=== PATIENT | female | born 1955 | race Caucasian/White ===

== ENCOUNTER → 2020-06-14 | Day surgery (SDC) | payer OTHER ==
[2020-06-04 15:21] LABS: Basophils # (auto) 0 10 ^3/uL (0-0.2); Basophils % (auto) 0.4 % (0.0-2.0); Eosinophils # (auto) 0.1 10 ^3/uL (0-0.8); Eosinophils % (auto) 0.9 % (0.0-7.0); Hematocrit 42.2 % (36.0-46.0); Hemoglobin 14.7 g/dL (12.2-16.2); Lymphocytes # (auto) 1.9 10 ^3/uL (0.4-5.4); Mean Corpuscular Hemoglobin 32.2 pg (28.0-32.0); Mean Corpuscular Hgb Conc. 34.8 g/dL (32.0-36.0); Mean Corpuscular Volume 92.4 fL (80.0-100.0); Monocytes % (auto) 10.3 % (0.0-12.0); Neutrophils # (auto) 6.2 10 ^3/uL (1.6-8.6); Neutrophils % (auto) 67.4 % (37.0-80.0); Platelet Count (auto) 231 10^3/uL (140-450); Red Blood Cells 4.57 10^6/uL (4.0-5.20); Red Cell Distribution Width 14.1 % (11.8-14.3); White Blood Cell 9.3 10^3/uL (4.4-10.8)
[2020-06-04 15:28] LABS: Urine Bacteria FEW /hpf (None Seen); Urine Blood Negative /uL (Negative); Urine Specific Gravity 1.014 (1.001-1.035); Urine WBC 7 /hpf (0 - 5)
[2020-06-04 15:41] LABS: INR 0.99 (0.9-1.15); Partial Thromboplastin Time 25.9 sec (23.0-31.2)
[2020-06-04 15:42] LABS: Albumin 3.7 g/dL (3.4-5.0); Calcium 8.4 mg/dL (8.5-10.1); Potassium 4.3 mmol/L (3.5-5.1)
[2020-06-04 15:48] LABS: BUN/Creatinine Ratio 12.1; Bilirubin, Total 0.3 mg/dL (0.2-1.0); Total Protein 7.2 g/dL (6.4-8.2)
[~2020-06-14] VITALS: Ht 170.2 cm; Wt 63.5 kg
[~2020-06-14] MED LIST: CLINDAMYCIN 600MG IV 50 ML IV ONE; ESTR1TAB3 PO; FLUO1TAB12 PO; HYDR1TAB97 PO; HYDROmorphone HCL 2 MG/ML VL IV PRN; IOHEXOL 300 MG/ML 100ML BOTTLE IJ ONE; LIDOCAINE W/ EPINEPHRINE 2% INJ 20ML VIAL ONE; MIDAZOLAM HCL 1MG/1ML-2 ML VIAL ONE; MORPHINE SULF(PF) 0.5MG/ML 10ML VIAL ONE; MORPHINE SULFATE 4 MG/ML SYR/VIAL IV PRN; ONDANSETRON HCL 4 MG/2 ML VIAL IV PRN; ONDANSETRON HCL 4 MG/2 ML VIAL ONE; PROPOFOL 10 MG/ML 20 ML IV ONE; SODIUM CHLORIDE LOCK 10 ML ONE; TRAZ300T16 PO; ZOLP12.52 PO; fentaNYL CITRATE 100 MCG/2 ML VL ONE
[2020-06-14 13:00] VITALS: BP 115/60
== END | disposition home or self-care (01) ==
LOC: SUR 07:13
PROVIDERS: ATTEND Anesthesiology Pain Medicine
DX: S32.030A Wedge compression fracture of third lumbar vertebra, initial encounter for closed fracture (principal); S32.010A Wedge compression fracture of first lumbar vertebra, initial encounter for closed fracture; M80.88XA Other osteoporosis with current pathological fracture, vertebra(e), initial encounter for fracture; G89.29 Other chronic pain; F32.9 Major depressive disorder, single episode, unspecified; Z88.2 Allergy status to sulfonamides; Z88.1 Allergy status to other antibiotic agents; Z88.0 Allergy status to penicillin; Z20.822 Contact with and (suspected) exposure to COVID-19; Z98.890 Other specified postprocedural states; Z79.899 Other long term (current) drug therapy; X58.XXXA Exposure to other specified factors, initial encounter; Y93.89 Activity, other specified; Y92.89 Other specified places as the place of occurrence of the external cause; Y99.8 Other external cause status
CPT/HCPCS: 22514; 22515; 36415; 72100; 80053; 81001; 85025; 85610; 85730; 87086; J1170; J2250; J2270; J2405; J2704; J3010; J3490; Q9967; U0003; 76001

== ENCOUNTER 2020-07-02 18:47 | Emergency (ER) | payer OTHER ==
[~2020-07-02] VITALS: Ht 172.7 cm; Wt 63.0 kg
[~2020-07-02 18:47] MED LIST changes: -CLINDAMYCIN 600MG IV 50 ML IV ONE; -HYDROmorphone HCL 2 MG/ML VL IV PRN; -IOHEXOL 300 MG/ML 100ML BOTTLE IJ ONE; -LIDOCAINE W/ EPINEPHRINE 2% INJ 20ML VIAL ONE; -MIDAZOLAM HCL 1MG/1ML-2 ML VIAL ONE; -MORPHINE SULF(PF) 0.5MG/ML 10ML VIAL ONE; -MORPHINE SULFATE 4 MG/ML SYR/VIAL IV PRN; -ONDANSETRON HCL 4 MG/2 ML VIAL IV PRN; -ONDANSETRON HCL 4 MG/2 ML VIAL ONE; -PROPOFOL 10 MG/ML 20 ML IV ONE; -SODIUM CHLORIDE LOCK 10 ML ONE; -fentaNYL CITRATE 100 MCG/2 ML VL ONE
[2020-07-02] MEDS ORDERED: ONDANSETRON HCL 4 MG/2 ML VIAL IV ONE (19:15)
[2020-07-02] MEDS ORDERED: SODIUM CHLORIDE 0.9% 1,000 ML IV ONE (19:15)
[2020-07-02 20:15] VITALS: BP 118/92
[2020-07-02 20:27] LABS: Basophils # (auto) 0 10 ^3/uL (0-0.2); Eosinophils # (auto) 0 10 ^3/uL (0-0.8); Hematocrit 42.8 % (36.0-46.0); Hemoglobin 14.8 g/dL (12.2-16.2); Lymphocytes # (auto) 0.6 10 ^3/uL (0.4-5.4); Lymphocytes % (auto) 3.4 % (10.0-50.0); Mean Corpuscular Hemoglobin 31.7 pg (28.0-32.0); Mean Corpuscular Hgb Conc. 34.6 g/dL (32.0-36.0); Mean Corpuscular Volume 91.6 fL (80.0-100.0); Monocytes # (auto) 1.2 10 ^3/uL (0-1.3); Monocytes % (auto) 6.6 % (0.0-12.0); Neutrophils # (auto) 16.1 10 ^3/uL (1.6-8.6); Nucleated Red Blood Cells % 0.1 %; Platelet Count (auto) 235 10^3/uL (140-450); Red Blood Cells 4.68 10^6/uL (4.0-5.20); Red Cell Distribution Width 13.8 % (11.8-14.3); White Blood Cell 17.9 10^3/uL (4.4-10.8)
[2020-07-02] MEDS ORDERED: PROCHLORPERAZINE EDISYLATE 5 MG/ML 2ML VIAL IV ONE (20:30)
[2020-07-02 20:45] LABS: Albumin 4.3 g/dL (3.4-5.0); BUN/Creatinine Ratio 13.7; Calcium 9.3 mg/dL (8.5-10.1); Potassium 3.1 mmol/L (3.5-5.1)
[2020-07-02 20:47] LABS: Bilirubin, Total 0.9 mg/dL (0.2-1.0); Total Protein 8.2 g/dL (6.4-8.2)
== END 2020-07-02 21:24 | disposition home or self-care (01) ==
LOC: ER 18:47
DX: F13.239 Sedative, hypnotic or anxiolytic dependence with withdrawal, unspecified (principal); R11.2 Nausea with vomiting, unspecified; Z86.73 Personal history of transient ischemic attack (TIA), and cerebral infarction without residual deficits; Z88.0 Allergy status to penicillin; Z88.1 Allergy status to other antibiotic agents; Z90.710 Acquired absence of both cervix and uterus
CPT/HCPCS: 36415; 80053; 85025; 93005; 96361; 96374; 96375; 99284; J0780; J2405; J7030

== ENCOUNTER → 2022-06-30 | Outpatient (CLI) | payer MEDICARE ==
[~2022-06-30] VITALS: Ht 170.2 cm; Wt 65.8 kg
[~2022-06-30] MED LIST changes: +ADENOSINE 55 MG in GIVE UN-DILUTED 0 ML IV ONE; +ADENOSINE 90 MG/30 ML INJ IV ONE; -ESTR1TAB3 PO; +ESTR1TAB6 PO
== END | disposition home or self-care (01) ==
LOC: Rad HDHVI 13:06
PROVIDERS: ATTEND Internal Medicine Cardiovascular Disease
DX: I50.9 Heart failure, unspecified (principal); R42 Dizziness and giddiness; R55 Syncope and collapse; R07.9 Chest pain, unspecified; R06.02 Shortness of breath; Z82.49 Family history of ischemic heart disease and other diseases of the circulatory system
CPT/HCPCS: 78452; 93005; 96374; 96375; A9500; J0153

== ENCOUNTER → 2022-09-10 | Outpatient (CLI) | payer MEDICARE ==
[~2022-09-10] MED LIST changes: -ADENOSINE 55 MG in GIVE UN-DILUTED 0 ML IV ONE; -ADENOSINE 90 MG/30 ML INJ IV ONE; +AMIO200T33 PO; +DIGO0.12 PO; +FLU01T PO; +FURO1TAB31 PO; +LIDOCAINE 2%HCL (LOCAL ANESTH.) INJ 20ML MDV ONE
[2022-09-10 09:08] VITALS: BP 114/56
[2022-09-10 09:28] VITALS: BP 119/57
== END | disposition home or self-care (01) ==
LOC: Rad HDHVI 08:59
PROVIDERS: ATTEND Internal Medicine Cardiovascular Disease
DX: Z01.818 Encounter for other preprocedural examination (principal); R94.31 Abnormal electrocardiogram [ECG] [EKG]; I50.33 Acute on chronic diastolic (congestive) heart failure; R60.1 Generalized edema; R55 Syncope and collapse; R07.9 Chest pain, unspecified
CPT/HCPCS: 71046; 93005; G0463

== ENCOUNTER 2022-09-11 07:10 | Day surgery (SDC) | payer MEDICARE ==
[2022-09-10 11:00] LABS: Basophils # (auto) 0.1 10 ^3/uL (0-0.2); Basophils % (auto) 0.7 % (0.0-2.0); Eosinophils # (auto) 0.1 10 ^3/uL (0-0.8); Eosinophils % (auto) 1.2 % (0.0-7.0); Hematocrit 45.3 % (36.0-46.0); Hemoglobin 15.1 g/dL (12.2-16.2); Lymphocytes # (auto) 1.5 10 ^3/uL (0.4-5.4); Lymphocytes % (auto) 15.3 % (10.0-50.0); Mean Corpuscular Hemoglobin 30.7 pg (28.0-32.0); Mean Corpuscular Hgb Conc. 33.4 g/dL (32.0-36.0); Mean Corpuscular Volume 91.8 fL (80.0-100.0); Monocytes # (auto) 0.9 10 ^3/uL (0-1.3); Monocytes % (auto) 8.9 % (0.0-12.0); Neutrophils # (auto) 7.3 10 ^3/uL (1.6-8.6); Neutrophils % (auto) 73.9 % (37.0-80.0); Nucleated Red Blood Cells % 0.1 %; Red Blood Cells 4.93 10^6/uL (4.0-5.20); Red Cell Distribution Width 14.4 % (11.8-14.3); White Blood Cell 9.9 10^3/uL (4.4-10.8)
[2022-09-10 11:15] LABS: INR 0.96 (0.9-1.15)
[2022-09-10 11:43] LABS: Calcium 8.7 mg/dL (8.5-10.1); Potassium 3.9 mmol/L (3.5-5.1)
[2022-09-10 11:46] LABS: BUN/Creatinine Ratio 11.7 (10.0-20.0)
[2022-09-11] VITALS (9 sets, daily range): BP systolic 86–103; BP diastolic 31–45
[~2022-09-11] VITALS: Ht 170.2 cm; Wt 61.2 kg
[~2022-09-11 07:10] MED LIST changes: -HYDR1TAB97 PO; -LIDOCAINE 2%HCL (LOCAL ANESTH.) INJ 20ML MDV ONE
[2022-09-11] MEDS ORDERED: ANGIOMAX 250 MG VIAL IV ONE (10:55)
[2022-09-11] MEDS ORDERED: SODIUM CHL 0.9% 0 ML ONE (10:56)
[2022-09-11] MEDS ORDERED: fentaNYL CITRATE 100 MCG/2 ML VL ONE (10:56)
[2022-09-11] MEDS ORDERED: IOHEXOL 350 MG/ML 500ML BOTTLE IJ ONE ×2 (10:56→11:11)
[2022-09-11] MEDS ORDERED: MIDAZOLAM HCL 2MG/2ML 2ml VIAL (1mg/ml) ONE ×2 (10:56→11:10)
[2022-09-11] MEDS ORDERED: LIDOCAINE 2%HCL (LOCAL ANESTH.) INJ 20ML MDV ONE ×2 (11:09→11:27)
== END 2022-09-11 14:10 | disposition home or self-care (01) ==
LOC: CATH 07:10
PROVIDERS: ATTEND Internal Medicine Cardiovascular Disease
DX: R07.89 Other chest pain (principal); R06.02 Shortness of breath; I48.0 Paroxysmal atrial fibrillation
CPT/HCPCS: 36247; 36415; 75716; 80048; 85025; 85610; 85730; 93458; C1757; C1760; C1894; J1644; J2250; J3010; Q9967; 93460; 99152; 99153